=== PATIENT | male | born 1980 | race Caucasian/White ===

== ENCOUNTER 2018-06-27 20:26 | Emergency (ER) | payer OTHER ==
[2018-06-27 20:51] VITALS: RESP 22; TEMP 96.9
[2018-06-27] MEDS ORDERED: LIDOCAINE 1% W/EPI MPF 30 ML SOL INFIL ONE (20:56)
[2018-06-27] MEDS ORDERED: LIDOCAINE 1% W/EPI MPF 30 ML SOL ONE (20:58)
[2018-06-27] MEDS ORDERED: BACITRACIN 500 U/GM OIN TOP ONE ×2 (21:38→21:39)
[2018-06-27 22:17] VITALS: O2SAT 98
[2018-06-27 22:18] VITALS: BP 132/83; PULSE 85
== END 2018-06-27 21:52 | disposition home or self-care (01) | DRG 914 ==
LOC: ED 20:26
DX: S09.90XA Unspecified injury of head, initial encounter (principal); S01.81XA Laceration without foreign body of other part of head, initial encounter; W22.8XXA Striking against or struck by other objects, initial encounter
CPT/HCPCS: 12013; 99284; A6402; A9270-GY